=== PATIENT | female | born 1975 | race Caucasian/White ===

== ENCOUNTER 2017-12-09 17:40 | Emergency (ER) | payer BC ==
[~2017-12-09 17:40] MED LIST: ADV100/50 INH; ALB17R INH; ALB18R INH; ALPR-434 PO; ANTI-INFLAMMITORY; AZIT1PAC21 PO; BEN100 PO; BUS10 PO; CEP500 PO; CEPH500T7 PO; CET10 PO; CIT20 PO; CODE120S4 PO; CYC10 PO; CYCL10TA29 PO; DIC50 PO; DICY20TA70 PO; DIP25 PO; DIPH-741 PO; DOCU-416 PO; IBU600 PO; IBU800 PO; IBUP-56 PO; IRON18TA2 PO; KETO10TA PO; LEV500 PO; LOR1 PO; LOR10 PO; LOR5 PO; MEPE50TA29 PO; MON10 PO; MULT-1372 PO; NYST100016 PO; OLAN2.5T20 PO; OLAN2.5T22; OMEP-125 PO; ONDA4TAB PO; OXYC-373 PO; OXYC-865 PO; PAN40 PO; PANT40TA65 PO; PEG4000S21 PO; PER PO; PRE20 PO; PREG25 PO; PRO25 PO; PROM-110 PO; SUCR1TAB85 PO; SUMA50TA34 PO; TRAM-420 PO; TRAZ-133 PO; ZYPREXA
[2017-12-09] MEDS ORDERED: IBUPROFEN 600 MG TAB PO ONE (17:50)
[2017-12-09] MEDS ORDERED: OLAN2.5T22 PO (17:51)
[2017-12-09] MEDS ORDERED: SERT-173 PO (17:51)
[2017-12-09] MEDS ORDERED: BUDE10.2 INH (17:51)
[2017-12-09] MEDS ORDERED: OLAN10TA21 PO (17:51)
[2017-12-09] MEDS ORDERED: BUDE10.25 IH (17:51)
--- NOTE | 2017-12-09 17:55 | ER Report ---
History and Physical Time Seen By MD: 17:50 Hx. of Stated Complaint: LEFTANKLE PAIN HPI/ROS 42-year-old female was walking had an inversion injury of her left ankle and states that she has bad arthritis has had increased pain throughout the day is able to bear weight pain laterally in the sink Allergies: Coded Allergies: Penicillins (Verified Allergy, Severe, QUIT BREATHING, 12/09/17) TONGUE, THROAT, SWELLS SHUT Sulfa (Sulfonamide Antibiotics) (Verified Allergy, Severe, AIRWAY SWELLS CLOSED, 12/09/17) QUITS BREATHING clindamycin (Unverified Allergy, Severe, HIVES, THROAT SWELLS., 12/09/17) doxycycline (Unverified Allergy, Severe, HIVES, THROAT SWELLS, 12/09/17) QUITS BREATHING erythromycin base (Verified Allergy, Severe, 12/09/17) PILL FORM-VOMITING IV CAUSES ARM TO TURN BLACK hydrocodone (Verified Allergy, Severe, SEIZURES, 12/09/17) latex (Verified Allergy, Severe, STOPS BREATHING, 12/09/17) HIVES AND ITCHING levofloxacin (Verified Allergy, Severe, STOPS HER BREATHING, 12/09/17) phenytoin (Verified Allergy, Intermediate, 12/09/17) DOES NOT HELP SEIZURE AND CAUSES MEMORY LOSS adhesive (Verified Allergy, Unknown, HIVES, 12/09/17) Uncoded Allergies: IV Contrast (Adverse Reaction, Unknown, 10/12/16) PT STATES SHE "BLACKED OUT AND NEEDED A SHOT IN HER STOMACH AND HAND TO BRING HER OUR OF IT" Home Meds Active Scripts Ibuprofen (IBUPROFEN) 600 Mg Tablet, 1 TAB PO Q6H, #30 TAB Prov:GOLD LAMA 12/09/17 Dicyclomine Hcl (DICYCLOMINE HCL) 20 Mg Tablet, 1 TAB PO QID, #120 TAB 4 Refills Prov:SANDI DONIS MD 10/31/16 Reported Medications Budesonide/Formoterol Fumarate (SYMBICORT 160-4.5 MCG INHALER) 10.2 Gm Inh, 10.2 GM INH BID, INH 12/09/17 Budesonide/Formoterol Fumarate (SYMBICORT 80-4.5 MCG INHALER) 10.2 Gm Hfa.aer.ad , 10.2 GM IH BID 12/09/17 Sertraline Hcl (ZOLOFT) 100 Mg Tablet, 1 TAB PO QDAY, TAB 12/09/17 Olanzapine (ZYPREXA) 10 Mg Tablet, 10 MG PO QHS 12/09/17 Olanzapine (ZYPREXA) 2.5 Mg Tablet, 2.5 MG PO QAM 12/09/17 Pantoprazole Sodium (PANTOPRAZOLE SODIUM) 40 Mg Tablet.dr, 40 MG PO QDAY, TAB.SR 10/12/16 Albuterol Sulfate (VENTOLIN HFA) 18 Gm Inh, 1-2 PUFF INH 3-4XD Y for WHEEZING, INH 09/12/16 Diphenhydramine Hcl (BENADRYL ALLERGY) 25 Mg Tablet, 25 MG PO PRN, TAB 08/30/16 Discontinued Reported Medications [Anti-Inflammitory] No Conflict Check 05/10/17 Discontinued Scripts Cyclobenzaprine Hcl (CYCLOBENZAPRINE HCL) 10 Mg Tablet, 10 MG PO Q8H Y for MUSCLE SPASMS, #20 TAB 0 Refills Prov:ALONZO COATES MD 05/10/17 Oxycodone Hcl/Acetaminophen (PERCOCET 5-325 MG TABLET) 1 Each Tablet, 1-2 EACH PO Q4H Y for PAIN, #15 TAB 0 Refills Prov:ALONZO COATES MD 05/10/17 Past Medical/Surgical History ARTHRITIS Hx Smoking: Yes (1.5 ppd x 30 yrs ) Smoking Status: Current: Every Day Smoker Exposure to Second Hand Smoke?: Yes Hx Substance Use Disorder: No Hx Alcohol Use: No Family History of: HTN Constitutional Vital Sign - Last 24 Hours 12/09/17 12/09/17 12/09/17 12/09/17 17:40 17:47 17:53 18:00 Temp 97.8 Pulse 88 Resp 16 B/P (MAP) 109/73 115/81 (92) 109/73 (85) 112/64 (80) Pulse Ox 96 O2 Delivery Room Air 12/09/17 12/09/17 12/09/17 12/09/17 18:10 18:15 18:20 18:25 Pulse 89 95 90 97 Pulse Ox 95 95 95 94 12/09/17 12/09/17 12/09/17 18:30 18:35 18:40 Pulse 98 95 B/P (MAP) 120/56 (77) Pulse Ox 95 97 95 Physical Exam 42-year-old female alert and oriented anxious heart rate is regular no murmurs rubs and gallops lungs clear to auscultation moves all extremities has mild tenderness left lateral ankle CMS intact distally no bruising slight swelling Medical Decision Making EKG/Imaging Imaging X-rays are interpreted as negative ED Course/Re-evaluation ED Course X-rays negative air splint applied in the emergency room will have her follow- up with her primary care physician she has an appointment this Saturday Re-evaluation Tolerated air splint application CMS intact distally Decision to Disposition Date: Dec 09, 2017 Decision to Disposition Time: 17:54 Depart Departure Latest Vital Signs Vital Signs Date Time Temp Pulse Resp B/P (MAP) Pulse Ox O2 Delivery O2 Flow Rate FiO2 12/09/17 18:40 95 95 12/09/17 18:30 120/56 (77) 12/09/17 17:40 97.8 16 Room Air Impression: Primary Impression: SPRAIN OF UNSPECIFIED LIGAMENT OF LEFT ANKLE, INIT ENCNTR Condition: Improved Disposition: HOME OR SELF-CARE Referrals: ELFEGO MCGEE (PCP) 2 Days New Scripts Ibuprofen (IBUPROFEN) 600 Mg Tablet 1 TAB PO Q6H, #30 TAB Prov: GOLD LAMA 12/09/17 Patient Instructions: Ankle Sprain (ED) GOLD LAMA Dec 09, 2017 17:55
[2017-12-09] MEDS ORDERED: IBUP600T22 PO (18:26)
[2017-12-09 18:30] VITALS: BP 120/56
--- NOTE | 2017-12-09 19:05 | RADIOLOGY IMAGING REPORT ---
FACILITY: [facility] [place]IENT NAME: Phuong Estes : 1975 MR: [id number] V: [id number] EXAM DATE: ORDERING PHYSICIAN: GOLD LAMA TECHNOLOGIST: Location: Patient: Phuong Estes : 1975 Visit/Account:[id number] Date of Sevice: 12/09/2017 ANKLE 3 VIEW MIN LEFT HISTORY: INVERSION INJURY THREE-VIEW EXAMINATION LEFT ANKLE. FINDINGS: No acute fracture. The distal tibia and fibular well-maintained. Ankle mortise intact. No soft tissue swelling. Hind and midfoot structures unremarkable. IMPRESSION: 1. Negative left ankle Report Dictated By: Melvin Arenas MD at 12/09/2017 6:59 PM Report E-Signed By: Melvin Arenas MD at 12/09/2017 7:01 PM WSN:[id number]
== END 2017-12-09 18:40 | disposition home or self-care (01) ==
LOC: ER 17:59
DX: S93.402A Sprain of unspecified ligament of left ankle, initial encounter (principal); F17.210 Nicotine dependence, cigarettes, uncomplicated
CPT/HCPCS: 73610; 99283; L1930

== ENCOUNTER 2017-12-23 19:38 | Emergency (ER) | payer BC ==
[~2017-12-23 19:38] MED LIST changes: +BUDE10.2 INH; +BUDE10.25 IH; +IBUP600T22 PO; +OLAN10TA21 PO; +OLAN2.5T22 PO; +SERT-173 PO
[2017-12-23] MEDS ORDERED: IBUP800T37 PO (20:42)
--- NOTE | 2017-12-23 20:43 | ER Report ---
History and Physical Time Seen By MD: 20:38 Hx. of Stated Complaint: patient was holding granddaughter when her right knee when out from under her HPI/ROS 42-year-old female was changing a baby's diaper and stepped over to through the diaper in the trashcan and pelvis sudden pop and burning sensation in her right knee has had meniscus surgery on her left has never had problems with the right before was able to bear weight after the accident and complains of pain in the right lateral knee said it radiates down to her right lateral malleolus Allergies: Coded Allergies: Penicillins (Verified Allergy, Severe, QUIT BREATHING, 12/09/17) TONGUE, THROAT, SWELLS SHUT Sulfa (Sulfonamide Antibiotics) (Verified Allergy, Severe, AIRWAY SWELLS CLOSED, 12/09/17) QUITS BREATHING clindamycin (Unverified Allergy, Severe, HIVES, THROAT SWELLS., 12/09/17) doxycycline (Unverified Allergy, Severe, HIVES, THROAT SWELLS, 12/09/17) QUITS BREATHING erythromycin base (Verified Allergy, Severe, 12/09/17) PILL FORM-VOMITING IV CAUSES ARM TO TURN BLACK hydrocodone (Verified Allergy, Severe, SEIZURES, 12/09/17) latex (Verified Allergy, Severe, STOPS BREATHING, 12/09/17) HIVES AND ITCHING levofloxacin (Verified Allergy, Severe, STOPS HER BREATHING, 12/09/17) phenytoin (Verified Allergy, Intermediate, 12/09/17) DOES NOT HELP SEIZURE AND CAUSES MEMORY LOSS adhesive (Verified Allergy, Unknown, HIVES, 12/09/17) Uncoded Allergies: IV Contrast (Adverse Reaction, Unknown, 10/12/16) PT STATES SHE "BLACKED OUT AND NEEDED A SHOT IN HER STOMACH AND HAND TO BRING HER OUR OF IT" Home Meds Active Scripts Ibuprofen (IBUPROFEN) 800 Mg Tablet, 1 TAB PO Q8H, #30 TAB Prov:GOLD LAMA CONE OPERATOR-C 12/23/17 Ibuprofen (IBUPROFEN) 600 Mg Tablet, 1 TAB PO Q6H, #30 TAB Prov:GOLD LAMA CONE OPERATOR-C 12/09/17 Dicyclomine Hcl (DICYCLOMINE HCL) 20 Mg Tablet, 1 TAB PO QID, #120 TAB 4 Refills Prov:SANDI DONIS MD 10/31/16 Reported Medications Budesonide/Formoterol Fumarate (SYMBICORT 160-4.5 MCG INHALER) 10.2 Gm Inh, 10.2 GM INH BID, INH 12/09/17 Budesonide/Formoterol Fumarate (SYMBICORT 80-4.5 MCG INHALER) 10.2 Gm Hfa.aer.ad , 10.2 GM IH BID 12/09/17 Sertraline Hcl (ZOLOFT) 100 Mg Tablet, 1 TAB PO QDAY, TAB 12/09/17 Olanzapine (ZYPREXA) 10 Mg Tablet, 10 MG PO QHS 12/09/17 Olanzapine (ZYPREXA) 2.5 Mg Tablet, 2.5 MG PO QAM 12/09/17 Pantoprazole Sodium (PANTOPRAZOLE SODIUM) 40 Mg Tablet.dr, 40 MG PO QDAY, TAB.SR 10/12/16 Albuterol Sulfate (VENTOLIN HFA) 18 Gm Inh, 1-2 PUFF INH 3-4XD Y for WHEEZING, INH 09/12/16 Diphenhydramine Hcl (BENADRYL ALLERGY) 25 Mg Tablet, 25 MG PO PRN, TAB 08/30/16 Past Medical/Surgical History Asthma, depression, meniscus surgery left knee Hx Smoking: Yes (1.5 ppd x 30 yrs ) Smoking Status: Current: Every Day Smoker Exposure to Second Hand Smoke?: Yes Hx Substance Use Disorder: No Hx Alcohol Use: No Constitutional Vital Sign - Last 24 Hours 12/23/17 19:52 Temp 98.3 Pulse 108 Resp 18 B/P (MAP) 106/60 Pulse Ox 94 O2 Delivery Room Air Physical Exam alert and oriented nad, heart rate is regular no murmurs rubs and gallops lungs clear to auscultation abdomen is soft moves all extremities pain right lateral knee positive drawer CMS intact distally 4 pulse Medical Decision Making ED Course/Re-evaluation ED Course X-ray is negative him did talk to the patient about wearing immobilizer for a week stay on crutches him resting she will follow-up with her PCP in 1 week for further eval Re-evaluation Patient saw having mild pain lateral knee tolerates immobilizer will use crutches help with PCP in one week diagnosed with knee strain Decision to Disposition Date: Dec 23, 2017 Decision to Disposition Time: 20:40 Depart Departure Latest Vital Signs Vital Signs Date Time Temp Pulse Resp B/P (MAP) Pulse Ox O2 Delivery O2 Flow Rate FiO2 12/23/17 19:52 98.3 108 18 106/60 94 Room Air Impression: Primary Impression: Strain of right knee Condition: Improved Disposition: HOME OR SELF-CARE Referrals: ANDERS BOB APRN (PCP) 1 Week New Scripts Ibuprofen (IBUPROFEN) 800 Mg Tablet 1 TAB PO Q8H, #30 TAB Prov: GOLD LAMA 12/23/17 Patient Instructions: Knee Immobilizer (DC), Knee Pain (ED) Additional Instructions: Wear your knee immobilizer when up and around usual crutches Motrin 800 mg 3 times a day see your primary care physician a week for further evaluation GOLD LAMA Dec 23, 2017 20:43
[2017-12-23] MEDS ORDERED: IBUPROFEN 800 MG TAB PO ONE (20:55)
[2017-12-23 21:00] VITALS: BP 109/64
--- NOTE | 2017-12-23 21:07 | RADIOLOGY IMAGING REPORT ---
FACILITY: [facility] - [place] PATIENT NAME: Phuong Estes : 1975 MR: [id number] V: [id number] EXAM DATE: ORDERING PHYSICIAN: GOLD LAMA TECHNOLOGIST: Location: [facility] - [place] Patient: Phuong Estes : 1975 Visit/Account:[id number] Date of Sevice: 12/23/2017 EXAMINATION: Right knee 3 views HISTORY: Pain. COMPARISON: None. FINDINGS: Bones of the right knee demonstrate normal alignment. No evidence of fracture or dislocation. Joint s paces are preserved. Soft tissues are radiographically unremarkable. No significant knee joint effusi on is evident. IMPRESSION: Negative right knee. Report Dictated By: Manuel Menchaca MD at 12/23/2017 9:03 PM Report E-Signed By: Manuel Menchaca MD at 12/23/2017 9:03 PM WSN:[id number]
== END 2017-12-23 21:13 | disposition home or self-care (01) ==
LOC: ER 20:05
DX: S86.911A Strain of unspecified muscle(s) and tendon(s) at lower leg level, right leg, initial encounter (principal)
CPT/HCPCS: 99283

== ENCOUNTER 2018-02-10 17:09 | Emergency (ER) | payer BC ==
[~2018-02-10 17:09] MED LIST changes: +IBUP800T37 PO
[2018-02-10 17:30] VITALS: BP 120/71
--- NOTE | 2018-02-10 17:45 | ER Report ---
History and Physical Time Seen By MD: 17:44 Hx. of Stated Complaint: pt is having shooting pain from her left hip down to her toes. she has a referal into [facility] and will call them tomorrow. HPI/ROS CHIEF COMPLAINT: Back pain HISTORY OF PRESENT ILLNESS: 42-year-old female patient presents to emergency room with complaint of back pain. Patient states that she has been having back pain for the past month. She states that she injured her left ankle and her right knee. She states that caused her to walk abnormally. She states that she' s had pain to the left side of the low back. It does radiate down the left leg. She states she has some numbness to the lateral aspect of the left upper leg. She denies any injury to the low back. She states that she has had no problems having bowel movement. Patient states she does feels if she has had some urinary retention recently. She states that she feels like she has been bathroom all the time. She states she did have an episode where she "dribbled a little" trying to go the bathroom. Patient states that she has no saddle paresthesia. She did try some exercises for sciatica pain but had no improvement in her symptoms. Patient states she did take ibuprofen with no improvement. REVIEW OF SYSTEMS: Respiratory: No cough, no dyspnea. Cardiovascular: No chest pain, no palpitations. Gastrointestinal: No vomiting, no abdominal pain. Musculoskeletal: As noted above Allergies: Coded Allergies: Penicillins (Verified Allergy, Severe, QUIT BREATHING, 12/09/17) TONGUE, THROAT, SWELLS SHUT Sulfa (Sulfonamide Antibiotics) (Verified Allergy, Severe, AIRWAY SWELLS CLOSED, 12/09/17) QUITS BREATHING clindamycin (Unverified Allergy, Severe, HIVES, THROAT SWELLS., 12/09/17) doxycycline (Unverified Allergy, Severe, HIVES, THROAT SWELLS, 12/09/17) QUITS BREATHING erythromycin base (Verified Allergy, Severe, 12/09/17) PILL FORM-VOMITING IV CAUSES ARM TO TURN BLACK hydrocodone (Verified Allergy, Severe, SEIZURES, 12/09/17) latex (Verified Allergy, Severe, STOPS BREATHING, 12/09/17) HIVES AND ITCHING levofloxacin (Verified Allergy, Severe, STOPS HER BREATHING, 12/09/17) phenytoin (Verified Allergy, Intermediate, 12/09/17) DOES NOT HELP SEIZURE AND CAUSES MEMORY LOSS adhesive (Verified Allergy, Unknown, HIVES, 12/09/17) Uncoded Allergies: IV Contrast (Adverse Reaction, Unknown, 10/12/16) PT STATES SHE "BLACKED OUT AND NEEDED A SHOT IN HER STOMACH AND HAND TO BRING HER OUR OF IT" Home Meds Active Scripts Tramadol Hcl (TRAMADOL HCL) 50 Mg Tablet, 50 MG PO Q4-6H Y for PAIN, #12 TAB Prov:[facility] 02/10/18 Prednisone (PREDNISONE) 20 Mg Tablet, 20 MG PO BID, #10 TAB Prov:SAL LOGAN [facility] 02/10/18 Cyclobenzaprine Hcl (CYCLOBENZAPRINE HCL) 10 Mg Tablet, 10 MG PO TID Y for MUSCLE SPASMS, #15 TAB Prov:SAL LOGAN [facility] 02/10/18 Ibuprofen (IBUPROFEN) 600 Mg Tablet, 1 TAB PO Q6H, #30 TAB Prov:GOLD LAMA 12/09/17 Dicyclomine Hcl (DICYCLOMINE HCL) 20 Mg Tablet, 1 TAB PO QID, #120 TAB 4 Refills Prov:SANDI DONIS MD 10/31/16 Reported Medications Budesonide/Formoterol Fumarate (SYMBICORT 80-4.5 MCG INHALER) 10.2 Gm Hfa.aer.ad , 10.2 GM IH BID 12/09/17 Olanzapine (ZYPREXA) 10 Mg Tablet, 10 MG PO QHS 12/09/17 Pantoprazole Sodium (PANTOPRAZOLE SODIUM) 40 Mg Tablet.dr, 40 MG PO QDAY, TAB.SR 10/12/16 Albuterol Sulfate (VENTOLIN HFA) 18 Gm Inh, 1-2 PUFF INH 3-4XD Y for WHEEZING, INH 09/12/16 Diphenhydramine Hcl (BENADRYL ALLERGY) 25 Mg Tablet, 25 MG PO PRN, TAB 08/30/16 Discontinued Reported Medications Budesonide/Formoterol Fumarate (SYMBICORT 160-4.5 MCG INHALER) 10.2 Gm Inh, 10.2 GM INH BID, INH 12/09/17 Sertraline Hcl (ZOLOFT) 100 Mg Tablet, 1 TAB PO QDAY, TAB 12/09/17 Olanzapine (ZYPREXA) 2.5 Mg Tablet, 2.5 MG PO QAM 12/09/17 Discontinued Scripts Ibuprofen (IBUPROFEN) 800 Mg Tablet, 1 TAB PO Q8H, #30 TAB Prov:GOLD LAMA FELICITA 12/23/17 Past Medical/Surgical History Patient has a past medical history of seizures, migraines, pericardial cyst, angina, bronchitis, asthma, pneumonia, reflux, cholecystitis, ovarian cyst, torn tendons in right shoulder, arthritis, left ankle fracture, rib fractures, finger fracture, skull fracture, back pain, anxiety, depression, PTSD, cervical cancer. Patient has a surgical history of adhesions removed, appendectomy, cholecystectomy, hysterectomy, tubal ligation, left knee surgery, torn meniscus , tendon and bone spur surgery, right shoulder surgery. Reviewed Nurses Notes: Yes Hx Smoking: Yes (1.5 ppd x 30 yrs ) Smoking Status: Current: Every Day Smoker Exposure to Second Hand Smoke?: Yes Hx Substance Use Disorder: No Hx Alcohol Use: No Constitutional Vital Sign - Last 24 Hours 02/10/18 02/10/18 02/10/18 17:16 17:29 17:30 Temp 99.7 97.9 Pulse 93 Resp 14 18 B/P (MAP) 113/67 (82) 120/81 120/71 (87) Pulse Ox 95 O2 Delivery Room Air Physical Exam General Appearance: The patient is alert, has no immediate need for airway protection and no current signs of toxicity. Respiratory: Chest is non tender, lungs are clear to auscultation. Cardiac: regular rate and rhythm Gastrointestinal: Abdomen is soft and non tender, no masses, bowel sounds normal. Musculoskeletal: Neck: Neck is supple and non tender. Back: Patient did have tenderness in the low back, L3-L4 region as well as in the left SI joint. Extremities have full range of motion and are non tender. Skin: No rashes or lesions. DIFFERENTIAL DIAGNOSIS: After history and physical exam differential diagnosis was considered for back pain including but not limited to muscular pain, herniated disc, spine fracture, intra-abdominal causes and urinary tract infection. Medical Decision Making Data Points Laboratory Hematology Test 02/10/18 18:15 Urine Color Yellow Urine Clarity Clear Urine pH 5.0 pH (4.8-9.5) Urine Specific [place] 1.018 Urine Protein Negative mg/dL (NEGATIVE) Urine Glucose (UA) Negative mg/dL (NEGATIVE) Urine Ketones Negative mg/dL (NEGATIVE) Urine Blood Negative (NEGATIVE) Urine Nitrite Negative (NEGATIVE) Urine Bilirubin Negative (NEGATIVE) Urine Urobilinogen Negative mg/dL (0.2-1.9) Urine Leukocyte Esterase Negative (NEGATIVE) Urine RBC 1 /HPF (0-2/HPF) Urine WBC 1 /HPF (0-5/HPF) Urine Squamous Epithelial Cells Moderate /LPF (</=FEW) Urine Bacteria Negative /HPF (NONE-FEW) Urine Mucus None /HPF (NONE-FEW) Chemistry Test 02/10/18 18:15 Urine Color Yellow Urine Clarity Clear Urine pH 5.0 pH (4.8-9.5) Urine Specific [place] 1.018 Urine Protein Negative mg/dL (NEGATIVE) Urine Glucose (UA) Negative mg/dL (NEGATIVE) Urine Ketones Negative mg/dL (NEGATIVE) Urine Blood Negative (NEGATIVE) Urine Nitrite Negative (NEGATIVE) Urine Bilirubin Negative (NEGATIVE) Urine Urobilinogen Negative mg/dL (0.2-1.9) Urine Leukocyte Esterase Negative (NEGATIVE) Urine RBC 1 /HPF (0-2/HPF) Urine WBC 1 /HPF (0-5/HPF) Urine Squamous Epithelial Cells Moderate /LPF (</=FEW) Urine Bacteria Negative /HPF (NONE-FEW) Urine Mucus None /HPF (NONE-FEW) Urinalysis Test 02/10/18 18:15 Urine Color Yellow Urine Clarity Clear Urine pH 5.0 pH (4.8-9.5) Urine Specific [place] 1.018 Urine Protein Negative mg/dL (NEGATIVE) Urine Glucose (UA) Negative mg/dL (NEGATIVE) Urine Ketones Negative mg/dL (NEGATIVE) Urine Blood Negative (NEGATIVE) Urine Nitrite Negative (NEGATIVE) Urine Bilirubin Negative (NEGATIVE) Urine Urobilinogen Negative mg/dL (0.2-1.9) Urine Leukocyte Esterase Negative (NEGATIVE) Urine RBC 1 /HPF (0-2/HPF) Urine WBC 1 /HPF (0-5/HPF) Urine Squamous Epithelial Cells Moderate /LPF (</=FEW) Urine Bacteria Negative /HPF (NONE-FEW) Urine Mucus None /HPF (NONE-FEW) EKG/Imaging Imaging INDICATION: back pain EXAM DATE: 02/10/2018 5:51 PM COMPARISON: 05/10/2017. FINDINGS: 4 images of the lumbar spine. Mineralization is normal. No acute alignment abnormality or fracture. Disc spaces are well-maintained. Soft tissues are nonacute. No significant cholecystectomy clips IMPRESSION: Grossly normal lumbar spine. Report Dictated By: Eros Boyle MD at 02/10/2018 8:12 PM Report E-Signed By: Eros Boyle MD at 02/10/2018 8:13 PM INDICATION: back pain EXAM DATE: 02/10/2018 5:51 PM COMPARISON: None. FINDINGS: 3 views of the sacroiliac joints. Mineralization is normal. No acute alignment abnormality or fracture. Mild symmetric degenerative changes of the SI joints. Soft tissues are unremarkable. IMPRESSION: Mild degenerative changes of the sacroiliac joints with no acute osseous abnormality. Report Dictated By: Eros Boyle MD at 02/10/2018 8:04 PM Report E-Signed By: Eros Boyle MD at 02/10/2018 8:06 PM ED Course/Re-evaluation ED Course Patient was admitted to exam room, history and physical were obtained. Differential diagnoses were considered. On examination lungs are clear, heart is regular, abdomen soft nontender. Patient does have tenderness in the L3-L4 region and in the left SI joint. X-rays done of the lumbar spine as well as the SI joints. Findings did show some arthritis in the SI joints, no abnormal findings in the lumbar spine. Patient was treated here in the emergency room with 60 mg of Norflex and 60 mg of Toradol. Patient did have some improvement in her comfort. We will go ahead and discharge patient home at this time. We will go ahead and put her on steroids to help with any inflammation, which I believe is likely the underlying cause of the tingling to the lateral left leg. We will also treat her with tramadol for pain as well as a muscle relaxer. I discussed this with the patient who verbalized understanding and agreement with plan. Decision to Disposition Date: Feb 10, 2018 Decision to Disposition Time: 18:43 Depart Departure Latest Vital Signs Vital Signs Date Time Temp Pulse Resp B/P (MAP) Pulse Ox O2 Delivery O2 Flow Rate FiO2 02/10/18 17:30 120/71 (87) 02/10/18 17:29 97.9 18 02/10/18 17:16 93 95 Room Air Impression: Primary Impression: Low back pain Condition: Improved Disposition: HOME OR SELF-CARE Referrals: ANDERS BOB APRN (PCP) New Scripts Tramadol Hcl (TRAMADOL HCL) 50 Mg Tablet 50 MG PO Q4-6H Y for PAIN, #12 TAB Prov: SAL LOGAN 02/10/18 Prednisone (PREDNISONE) 20 Mg Tablet 20 MG PO BID, #10 TAB Prov: SAL LOGAN 02/10/18 Cyclobenzaprine Hcl (CYCLOBENZAPRINE HCL) 10 Mg Tablet 10 MG PO TID Y for MUSCLE SPASMS, #15 TAB Prov: SAL LOGAN 02/10/18 Patient Instructions: Acute Low Back Pain (ED) Additional Instructions: Limit activity by pain. Get plenty of rest. Alternate heat and ice to the low back. Follow up with [facility], call tomorrow to make an appointment. Limit heavy lifting. Take the medication as prescribed. Return to the ER if condition worsens. Problem Qualifiers Primary Impression: Low back pain Chronicity: acute Back pain laterality: left Sciatica presence: with sciatica Sciatica laterality: sciatica of left side Qualified Codes: M54.42 - Lumbago with sciatica, left side SAL LOGAN SHIP UNLOADER Feb 10, 2018 17:44
[2018-02-10] MEDS ORDERED: ORPHENADRINE 60MG/2ML INJ IM ONE (17:55)
[2018-02-10] MEDS ORDERED: KETOROLAC 60 MG/2 ML VIAL IM ONE (17:55)
[2018-02-10] MEDS ORDERED: CYCL10TA29 PO (18:41)
[2018-02-10] MEDS ORDERED: PRED20TA6 PO (18:41)
[2018-02-10] MEDS ORDERED: TRAM-420 PO (18:41)
--- NOTE | 2018-02-10 20:09 | RADIOLOGY IMAGING REPORT ---
FACILITY: [facility] PATIENT NAME: Phuong Estes : 1975 MR: [id number] V: [id number] EXAM DATE: ORDERING PHYSICIAN: SAL LOGAN TECHNOLOGIST: Location: [facility] - [place] Patient: Phuong Estes : 1975 Visit/Account:[id number] Date of Sevice: 02/10/2018 INDICATION: back pain EXAM DATE: 02/10/2018 5:51 PM COMPARISON: None. FINDINGS: 3 views of the sacroiliac joints. Mineralization is normal. No acute alignment abnormality or fractur e. Mild symmetric degenerative changes of the SI joints. Soft tissues are unremarkable. IMPRESSION: Mild degenerative changes of the sacroiliac joints with no acute osseous abnormality. Report Dictated By: Eros Boyle MD at 02/10/2018 8:04 PM Report E-Signed By: Eros Boyle MD at 02/10/2018 8:06 PM WSN:[id number]
--- NOTE | 2018-02-10 20:17 | RADIOLOGY IMAGING REPORT ---
FACILITY: [facility] - [place] PATIENT NAME: Phuong Estes : 1975 MR: [id number] V: [id number] EXAM DATE: ORDERING PHYSICIAN: SAL LOGAN TECHNOLOGIST: Location: [facility] Patient: Phuong Estes : 1975 Visit/Account:[id number] Date of Sevice: 02/10/2018 INDICATION: back pain EXAM DATE: 02/10/2018 5:51 PM COMPARISON: 05/10/2017. FINDINGS: 4 images of the lumbar spine. Mineralization is normal. No acute alignment abnormality or fracture. Disc spaces are well-maintained. Soft tissues are nonacute. No significant cholecystectomy clips IMPRESSION: Grossly normal lumbar spine. Report Dictated By: Eros Boyle MD at 02/10/2018 8:12 PM Report E-Signed By: Eros Boyle MD at 02/10/2018 8:13 PM WSN:[id number]
== END 2018-02-10 18:50 | disposition home or self-care (01) ==
LOC: ER 17:29
DX: M54.42 Lumbago with sciatica, left side (principal)
CPT/HCPCS: 81001; 96372; 99283; J1885; J2360; 72120; 72202

== ENCOUNTER 2018-07-13 16:19 | Emergency (ER) | payer BC ==
[~2018-07-13 16:19] MED LIST changes: +PRED20TA6 PO
--- NOTE | 2018-07-13 16:32 | ER Report ---
History and Physical Time Seen By MD: 16:32 HPI/ROS CHIEF COMPLAINT: Lightheadedness, dizziness, generalized fatigue. HISTORY OF PRESENT ILLNESS: Patient is a 43-year-old female here with complaints of the above. Patient reports that her symptoms started yesterday. She is currently under treatment for sinusitis with penicillin, previously completed a course of azithromycin. Patient has decreased appetite, nausea, general malaise. Patient is nontoxic in appearance, hemodynamically stable, afebrile. REVIEW OF SYSTEMS: Constitutional: No fever, no chills. Eyes: No discharge. + intermittent shaky vision ENT: No sore throat. + sinus pressure, pain Cardiovascular: No chest pain, no palpitations. Respiratory: No cough, no shortness of breath. Gastrointestinal: No abdominal pain, no vomiting. Genitourinary: No hematuria. Musculoskeletal: No back pain. Skin: No rashes. Neurological: + headaches, lightheadedness, dizziness Allergies: Coded Allergies: Penicillins (Verified Allergy, Severe, QUIT BREATHING, 12/09/17) TONGUE, THROAT, SWELLS SHUT Sulfa (Sulfonamide Antibiotics) (Verified Allergy, Severe, AIRWAY SWELLS CLOSED, 12/09/17) QUITS BREATHING clindamycin (Unverified Allergy, Severe, HIVES, THROAT SWELLS., 12/09/17) doxycycline (Unverified Allergy, Severe, HIVES, THROAT SWELLS, 12/09/17) QUITS BREATHING erythromycin base (Verified Allergy, Severe, 12/09/17) PILL FORM-VOMITING IV CAUSES ARM TO TURN BLACK hydrocodone (Verified Allergy, Severe, SEIZURES, 12/09/17) latex (Verified Allergy, Severe, STOPS BREATHING, 12/09/17) HIVES AND ITCHING levofloxacin (Verified Allergy, Severe, STOPS HER BREATHING, 12/09/17) phenytoin (Verified Allergy, Intermediate, 12/09/17) DOES NOT HELP SEIZURE AND CAUSES MEMORY LOSS adhesive (Verified Allergy, Unknown, HIVES, 12/09/17) Uncoded Allergies: IV Contrast (Adverse Reaction, Unknown, 10/12/16) PT STATES SHE "BLACKED OUT AND NEEDED A SHOT IN HER STOMACH AND HAND TO BRING HER OUR OF IT" Home Meds Active Scripts Meclizine Hcl (MECLIZINE HCL) 12.5 Mg Tablet, 12.5 MG PO BID PRN for DIZZINESS, #20 TAB Prov:JULISSA GUERRA DO 07/13/18 Ondansetron 4 Mg Odt (ONDANSETRON 4 MG ODT) 4 Mg Tab.rapdis, 4 MG PO ONCE, #20 T AB Prov:JULISSA GUERRA DO 07/13/18 Ibuprofen (IBUPROFEN) 600 Mg Tablet, 1 TAB PO Q6H, #30 TAB Prov:GOLD LAMA 12/09/17 Dicyclomine Hcl (DICYCLOMINE HCL) 20 Mg Tablet, 1 TAB PO QID, #120 TAB 4 Refills Prov:SANDI DONIS MD 10/31/16 Reported Medications Venlafaxine Hcl (EFFEXOR XR) 37.5 Mg Cap.er.24h, 37.5 MG PO QDAY 07/13/18 Cephalexin (KEFLEX) 500 Mg Capsule, 500 MG PO Q6H, #28 CAP 07/13/18 Gabapentin (GABAPENTIN) 300 Mg Capsule, 300 MG PO TID, CAPSULE 07/13/18 Budesonide/Formoterol Fumarate (SYMBICORT 80-4.5 MCG INHALER) 10.2 Gm Hfa.aer.ad, 10.2 GM IH BID 12/09/17 Pantoprazole Sodium (PANTOPRAZOLE SODIUM) 40 Mg Tablet.dr, 40 MG PO QDAY, TAB.SR 10/12/16 Albuterol Sulfate (VENTOLIN HFA) 18 Gm Inh, 1-2 PUFF INH 3-4XD PRN for WHEEZING, INH 09/12/16 Diphenhydramine Hcl (BENADRYL ALLERGY) 25 Mg Tablet, 25 MG PO PRN, TAB 08/30/16 Discontinued Reported Medications Olanzapine (ZYPREXA) 10 Mg Tablet, 10 MG PO QHS 12/09/17 Discontinued Scripts Tramadol Hcl (TRAMADOL HCL) 50 Mg Tablet, 50 MG PO Q4-6H PRN for PAIN, #12 TAB Prov:SAL LOGAN 02/10/18 Prednisone (PREDNISONE) 20 Mg Tablet, 20 MG PO BID, #10 TAB Prov:SAL LOGAN 02/10/18 Cyclobenzaprine Hcl (CYCLOBENZAPRINE HCL) 10 Mg Tablet, 10 MG PO TID PRN for MUSCLE SPASMS, #15 TAB Prov:SAL LOGAN 02/10/18 Hx Smoking: Yes (1.5 ppd x 30 yrs ) Smoking Status: Current: Every Day Smoker Exposure to Second Hand Smoke?: Yes Hx Substance Use Disorder: No Hx Alcohol Use: No Constitutional Vital Sign - Last 24 Hours 07/13/18 07/13/18 07/13/18 07/13/18 16:26 16:26 16:28 16:34 Temp 98.5 Pulse 94 89 Resp 14 B/P (MAP) 141/79 (99) 141/79 (99) 141/79 Pulse Ox 92 93 O2 Delivery Room Air 07/13/18 07/13/18 07/13/18 07/13/18 16:34 16:49 16:49 17:00 Pulse 89 84 84 B/P (MAP) 112/67 (82) Pulse Ox 93 92 92 07/13/18 07/13/18 07/13/18 07/13/18 17:00 17:04 17:04 17:19 Pulse 93 93 ??? B/P (MAP) 112/67 (82) Pulse Ox 93 93 07/13/18 07/13/18 07/13/18 07/13/18 17:19 17:34 17:34 17:49 Pulse ? 85 Pulse Ox 95 07/13/18 07/13/18 07/13/18 07/13/18 17:49 18:00 18:00 18:04 Pulse 85 89 B/P (MAP) 102/56 (71) 102/56 (71) Pulse Ox 95 94 07/13/18 18:04 Pulse 89 Pulse Ox 94 Intake and Output 07/13/18 07/13/18 07/14/18 15:00 23:00 07:00 Intake Total 1000 ml Balance 1000 ml Physical Exam General Appearance: The patient is alert, has no immediate need for airway protection and no signs of toxicity. Mild distress Eyes: Pupils equal and round no pallor or injection. + horizontal nystagmus ENT, Mouth: Mucous membranes are moist. Respiratory: There are no retractions, lungs are clear to auscultation. Cardiovascular: Regular rate and rhythm. Gastrointestinal: Abdomen is soft and non tender, no masses, bowel sounds normal. Neurological: No focal neuro deficits Skin: Warm and dry, no rashes. Musculoskeletal: Neck is supple non tender. Extremities are nontender, nonswollen and have full range of motion. DIFFERENTIAL DIAGNOSIS: After history and physical exam differential diagnosis was considered for peripheral versus central vertigo, sinusitis, labyrinthitis, viral syndrome, dehydration, electrolyte abnormality Medical Decision Making Data Points Result Diagram: 07/13/18 1632 07/13/18 1632 Laboratory Hematology Test 07/13/18 16:32 07/13/18 17:10 Red Blood Count 5.63 M/uL (4.17-5.56) Mean Corpuscular Volume 93.1 fL (80.0-96.0) Mean Corpuscular Hemoglobin 31.9 pg (26.0-33.0) Mean Corpuscular Hemoglobin Concent 34.2 g/dL (32.0-36.0) Red Cell Distribution Width 12.7 % (11.5-14.5) Mean Platelet Volume 8.2 fL (7.2-11.1) Neutrophils (%) (Auto) 68.8 % (39.4-72.5) Lymphocytes (%) (Auto) 22.7 % (17.6-49.6) Monocytes (%) (Auto) 6.0 % (4.1-12.4) Eosinophils (%) (Auto) 1.6 % (0.4-6.7) Basophils (%) (Auto) 0.9 % (0.3-1.4) Nucleated RBC Relative Count (auto) 0.0 /100WBC Neutrophils # (Auto) 4.9 K/uL (2.0-7.4) Lymphocytes # (Auto) 1.6 K/uL (1.3-3.6) Monocytes # (Auto) 0.4 K/uL (0.3-1.0) Eosinophils # (Auto) 0.1 K/uL (0.0-0.5) Basophils # (Auto) 0.1 K/uL (0.0-0.1) Nucleated RBC Absolute Count (auto) 0.00 K/uL Erythrocyte Sedimentation Rate 3 mm/HOUR (0-20) Sodium Level 139 mmol/L (137-145) Potassium Level 3.8 mmol/L (3.5-5.0) Chloride Level 104 mmol/L (98-107) Carbon Dioxide Level 26 mmol/L (22-31) Blood Urea Nitrogen 9 mg/dl (7-18) Creatinine 0.80 mg/dl (0.52-1.04) Glomerular Filtration Rate Calc > 60.0 Random Glucose 123 mg/dl (75-110) Calcium Level 9.7 mg/dl (8.4-10.2) Total Bilirubin 0.3 mg/dl (0.2-1.3) Aspartate Amino Transf (AST/SGOT) 26 U/L (0-35) Alanine Aminotransferase (ALT/SGPT) 24 U/L (0-56) Alkaline Phosphatase 69 U/L (0-126) Total Protein 8.1 g/dl (6.3-8.2) Albumin 4.6 g/dl (3.5-5.0) Urine Color Yellow Urine Clarity Slightly-cloudy Urine pH 6.0 pH (4.8-9.5) Urine Specific [place] 1.010 Urine Protein Negative mg/dL (NEGATIVE) Urine Glucose (UA) Negative mg/dL (NEGATIVE) Urine Ketones Negative mg/dL (NEGATIVE) Urine Blood Negative (NEGATIVE) Urine Nitrite Negative (NEGATIVE) Urine Bilirubin Negative (NEGATIVE) Urine Urobilinogen Negative mg/dL (0.2-1.9) Urine Leukocyte Esterase Negative (NEGATIVE) Urine RBC None /HPF (0-2/HPF) Urine WBC 1 /HPF (0-5/HPF) Urine Squamous Epithelial Cells Many /LPF (</=FEW) Urine Bacteria Few /HPF (NONE-FEW) Urine Mucus None /HPF (NONE-FEW) Chemistry Test 07/13/18 16:32 07/13/18 17:10 White Blood Count 7.2 k/uL (4.5-11.0) Red Blood Count 5.63 M/uL (4.17-5.56) Hemoglobin 17.9 g/dL (12.0-16.0) Hematocrit 52.4 % (34.0-47.0) Mean Corpuscular Volume 93.1 fL (80.0-96.0) Mean Corpuscular Hemoglobin 31.9 pg (26.0-33.0) Mean Corpuscular Hemoglobin Concent 34.2 g/dL (32.0-36.0) Red Cell Distribution Width 12.7 % (11.5-14.5) Platelet Count 217 K/uL (150-450) Mean Platelet Volume 8.2 fL (7.2-11.1) Neutrophils (%) (Auto) 68.8 % (39.4-72.5) Lymphocytes (%) (Auto) 22.7 % (17.6-49.6) Monocytes (%) (Auto) 6.0 % (4.1-12.4) Eosinophils (%) (Auto) 1.6 % (0.4-6.7) Basophils (%) (Auto) 0.9 % (0.3-1.4) Nucleated RBC Relative Count (auto) 0.0 /100WBC Neutrophils # (Auto) 4.9 K/uL (2.0-7.4) Lymphocytes # (Auto) 1.6 K/uL (1.3-3.6) Monocytes # (Auto) 0.4 K/uL (0.3-1.0) Eosinophils # (Auto) 0.1 K/uL (0.0-0.5) Basophils # (Auto) 0.1 K/uL (0.0-0.1) Nucleated RBC Absolute Count (auto) 0.00 K/uL Erythrocyte Sedimentation Rate 3 mm/HOUR (0-20) Glomerular Filtration Rate Calc > 60.0 Calcium Level 9.7 mg/dl (8.4-10.2) Total Bilirubin 0.3 mg/dl (0.2-1.3) Aspartate Amino Transf (AST/SGOT) 26 U/L (0-35) Alanine Aminotransferase (ALT/SGPT) 24 U/L (0-56) Alkaline Phosphatase 69 U/L (0-126) Total Protein 8.1 g/dl (6.3-8.2) Albumin 4.6 g/dl (3.5-5.0) Urine Color Yellow Urine Clarity Slightly-cloudy Urine pH 6.0 pH (4.8-9.5) Urine Specific [place] 1.010 Urine Protein Negative mg/dL (NEGATIVE) Urine Glucose (UA) Negative mg/dL (NEGATIVE) Urine Ketones Negative mg/dL (NEGATIVE) Urine Blood Negative (NEGATIVE) Urine Nitrite Negative (NEGATIVE) Urine Bilirubin Negative (NEGATIVE) Urine Urobilinogen Negative mg/dL (0.2-1.9) Urine Leukocyte Esterase Negative (NEGATIVE) Urine RBC None /HPF (0-2/HPF) Urine WBC 1 /HPF (0-5/HPF) Urine Squamous Epithelial Cells Many /LPF (</=FEW) Urine Bacteria Few /HPF (NONE-FEW) Urine Mucus None /HPF (NONE-FEW) Urinalysis Test 07/13/18 17:10 Urine Color Yellow Urine Clarity Slightly-cloudy Urine pH 6.0 pH (4.8-9.5) Urine Specific [place] 1.010 Urine Protein Negative mg/dL (NEGATIVE) Urine Glucose (UA) Negative mg/dL (NEGATIVE) Urine Ketones Negative mg/dL (NEGATIVE) Urine Blood Negative (NEGATIVE) Urine Nitrite Negative (NEGATIVE) Urine Bilirubin Negative (NEGATIVE) Urine Urobilinogen Negative mg/dL (0.2-1.9) Urine Leukocyte Esterase Negative (NEGATIVE) Urine RBC None /HPF (0-2/HPF) Urine WBC 1 /HPF (0-5/HPF) Urine Squamous Epithelial Cells Many /LPF (</=FEW) Urine Bacteria Few /HPF (NONE-FEW) Urine Mucus None /HPF (NONE-FEW) EKG/Imaging Imaging CCESSION #: [id number] EXAMINATION: CT facial bones without IV contrast HISTORY: Sinus infection/pressure. COMPARISON: None. TECHNIQUE: Axial images were obtained from the superior aspect of the orbits through the inferior aspect of mandible. Coronal and sagittal reformatted images were obtained from the axial source data. No IV contrast was administered. One of the following dose optimization techniques was utilized in the performance of this exam: Automated exposure control; adjustment of the mA and/or kV according to the patient's size; or use of an iterative reconstruction technique. Specific details can be referenced in the facility's radiology CT exam operational policy. FINDINGS: Soft Tissues: Negative. Mandible / TMJ: Negative. Maxillae / pterygoid plates: Negative. Zygoma / zygomatic arches: Negative. Orbits: Negative. Nasal bones / nasal septum: Negative. Frontal bones: Negative. Sinuses: Trace mucosal thickening in the left frontoethmoidal recess without significant narrowing of the left frontoethmoidal recess. The paranasal sinuses are otherwise well aerated. Visualized brain: Negative. IMPRESSION: The paranasal sinuses are well aerated with only trace mucosal thickening seen in the left frontoethmoidal recess. Report Dictated By: Devaughn Engel MD at 07/13/2018 5:42 PM Report E-Signed By: Devaughn Engel MD at 07/13/2018 5:54 PM WSN:[id number] ED Course/Re-evaluation ED Course Patient is a 43-year-old female here with complaints of frontal headache, lightheadedness, vertiginous symptoms in the setting of recent treatment of sinusitis with azithromycin followed by a current course of Keflex. Patient does have a fatigable horizontal nystagmus which may be secondary to a viral syndrome such as labyrinthitis but is most consistent with a peripheral vertigo. Patient was given normal saline bolus, meclizine, Reglan, Toradol for symptom management with improvement in symptoms. CBC was unremarkable with no leukocytosis, ESR was negative, CMP was found to be normal and urinalysis was noninfectious. CT imaging of the facial bones was completed to evaluate for bony erosion or extension of infection. CT imaging was unremarkable. I discussed the findings with the patient and she voiced understanding. Return precautions were provided. Patient was sent home with meclizigermania, Zofran and advised to complete her course of Keflex. 24-48 hour PCP follow-up recommended. Patient was hemodynamically stable, afebrile at time of discharge. Decision to Disposition Date: Jul 13, 2018 Decision to Disposition Time: 18:23 Depart Departure Latest Vital Signs Vital Signs Date Time Temp Pulse Resp B/P (MAP) Pulse Ox O2 Delivery O2 Flow Rate FiO2 07/13/18 18:04 89 94 07/13/18 18:00 102/56 (71) 07/13/18 16:28 98.5 14 Room Air Impression: Primary Impression: Dizzinesses Additional Impressions: Dehydration Sinusitis Condition: Improved Disposition: HOME OR SELF-CARE Referrals: ANDERS BOB APRN (PCP) New Scripts Meclizine Hcl (MECLIZINE HCL) 12.5 Mg Tablet 12.5 MG PO BID PRN for DIZZINESS, #20 TAB Prov: JULISSA GUERRA DO 07/13/18 Ondansetron 4 Mg Odt (ONDANSETRON 4 MG ODT) 4 Mg Tab.rapdis 4 MG PO ONCE, #20 TAB Prov: JULISSA GUERRA DO 07/13/18 Patient Instructions: Dizziness (ED) Additional Instructions: Please drink plenty of water. Please continue your current medications as prescribed including Keflex. You may take 1 tablet of Zofran every 4-6 hours as needed for nausea and vomiting, meclizine 1 tablet every 12 hours as needed for vertigo and dizziness. Please follow-up with her family doctor in the next 24 hours. Please return promptly if you develop worsening headache, pain with eye movement, fevers, weakness of the extremities, inability to keep down food or fluids, neck stiffness, double vision or visual disturbances. Problem Qualifiers JULISSA GUERRA DO Jul 13, 2018 16:32
[2018-07-13] MEDS ORDERED: NS(*) 0.9% 1000 ML BAG 1,000 ML IV ONE (16:42)
[2018-07-13] MEDS ORDERED: MECLIZINE HCL 25 MG TAB PO ONE (16:45)
[2018-07-13] MEDS ORDERED: METOCLOPRAMIDE 10 MG/2 ML SDV IVP ONE (16:45)
[2018-07-13] MEDS ORDERED: KETOROLAC 30 MG/ML VIAL IVP ONE (16:45)
[2018-07-13 16:53] LABS: PLATELET COUNT, AUTOMATED 217 K/uL (150-450)
[2018-07-13] MEDS ORDERED: GABA-549 PO (17:02)
[2018-07-13] MEDS ORDERED: CEPH-13 PO (17:02)
[2018-07-13] MEDS ORDERED: VENL37.594 PO (17:02)
[2018-07-13] MEDS ORDERED: IOPAMIDOL 76% 100 ML INFUS BTL 0 ML ONE (17:05)
--- NOTE | 2018-07-13 17:58 | RADIOLOGY IMAGING REPORT ---
FACILITY: [facility] PATIENT NAME: Phuong Estes : 1975 MR: [id number] V: [id number] EXAM DATE: ORDERING PHYSICIAN: JULISSA GUERRA TECHNOLOGIST: Location: [facility] [place] Patient: Phuong Estes : 1975 Visit/Account:[id number] Date of Sevice: 07/13/2018 EXAMINATION: CT facial bones without IV contrast HISTORY: Sinus infection/pressure. COMPARISON: None. TECHNIQUE: Axial images were obtained from the superior aspect of the orbits through the inferior as pect of mandible. Coronal and sagittal reformatted images were obtained from the axial source data. N o IV contrast was administered. One of the following dose optimization techniques was utilized in the performance of this exam: Autom ated exposure control; adjustment of the mA and/or kV according to the patient's size; or use of an i terative reconstruction technique. Specific details can be referenced in the facility's radiology C T exam operational policy. FINDINGS: Soft Tissues: Negative. Mandible / TMJ: Negative. Maxillae / pterygoid plates: Negative. Zygoma / zygomatic arches: Negative. Orbits: Negative. Nasal bones / nasal septum: Negative. Frontal bones: Negative. Sinuses: Trace mucosal thickening in the left frontoethmoidal recess without significant narrowing of the left frontoethmoidal recess. The paranasal sinuses are otherwise well aerated. Visualized brain: Negative. IMPRESSION: The paranasal sinuses are well aerated with only trace mucosal thickening seen in the left frontoethm oidal recess. Report Dictated By: Devaughn Engel MD at 07/13/2018 5:42 PM Report E-Signed By: Devaughn Engel MD at 07/13/2018 5:54 PM WSN:[id number]
[2018-07-13 18:00] VITALS: BP 102/56
[2018-07-13] MEDS ORDERED: ONDA4TAB9 PO (18:24)
[2018-07-13] MEDS ORDERED: MECL12.5 PO (18:24)
== END 2018-07-13 18:30 | disposition home or self-care (01) ==
LOC: ER 16:42
DX: R42 Dizziness and giddiness (principal); E86.0 Dehydration; J01.90 Acute sinusitis, unspecified; F17.210 Nicotine dependence, cigarettes, uncomplicated
CPT/HCPCS: 70486; 81001; 85025; 85651; 96361; 96374; 96375; 99284; J1885; J2765; J7030; J8597; 82040; 82247; 82310; 82374; 82435; 82565; 82947; 84075; 84132; 84155; 84295; 84450; 84460; 84520; Q9967

== ENCOUNTER → 2018-10-31 | Emergency (ER) | payer BC ==
[~2018-10-31] MED LIST changes: +CEPH-13 PO; +GABA-549 PO; +MECL12.5 PO; +ONDA4TAB9 PO; +VENL37.594 PO
--- NOTE | 2018-10-31 17:09 | ER Report ---
History and Physical Time Seen By MD: 17:08 HPI/ROS CHIEF COMPLAINT: Left foot and ankle pain HISTORY OF PRESENT ILLNESS: Patient is a 43-year-old female here with complaints of 3 day history of left ankle swelling, left base of 5th metatarsal tenderness. Denies discrete injury to the site. Patient has been using Gerber wrap, ibuprofen without resolution of symptoms. Patient also reports having tingling sensation in the distal digits. Denies other trauma at this time REVIEW OF SYSTEMS: Constitutional: No fever, no chills. Musculoskeletal: + Left ankle and foot pain Skin: No rashes or ecchymosis Neurological: Neurovascular exam intact, capillary refill less than 2 sec Allergies: Coded Allergies: Penicillins (Verified Allergy, Severe, QUIT BREATHING, 10/31/18) TONGUE, THROAT, SWELLS SHUT Sulfa (Sulfonamide Antibiotics) (Verified Allergy, Severe, AIRWAY SWELLS CLOSED, 10/31/18) QUITS BREATHING clindamycin (Unverified Allergy, Severe, HIVES, THROAT SWELLS., 10/31/18) doxycycline (Unverified Allergy, Severe, HIVES, THROAT SWELLS, 10/31/18) QUITS BREATHING erythromycin base (Verified Allergy, Severe, 10/31/18) PILL FORM-VOMITING IV CAUSES ARM TO TURN BLACK hydrocodone (Verified Allergy, Severe, SEIZURES, 10/31/18) latex (Verified Allergy, Severe, STOPS BREATHING, 10/31/18) HIVES AND ITCHING levofloxacin (Verified Allergy, Severe, STOPS HER BREATHING, 10/31/18) phenytoin (Verified Allergy, Intermediate, 10/31/18) DOES NOT HELP SEIZURE AND CAUSES MEMORY LOSS adhesive (Verified Allergy, Unknown, HIVES, 10/31/18) Uncoded Allergies: IV Contrast (Adverse Reaction, Unknown, 10/12/16) PT STATES SHE "BLACKED OUT AND NEEDED A SHOT IN HER STOMACH AND HAND TO BRING HER OUR OF IT" Home Meds Active Scripts Meclizine Hcl (MECLIZINE HCL) 12.5 Mg Tablet, 12.5 MG PO BID PRN for DIZZINESS, #20 TAB Prov:JULISSA GUERRA DO 07/13/18 Ondansetron 4 Mg Odt (ONDANSETRON 4 MG ODT) 4 Mg Tab.rapdis, 4 MG PO ONCE, #20 TAB Prov:JULISSA GUERRA DO 07/13/18 Ibuprofen (IBUPROFEN) 600 Mg Tablet, 1 TAB PO Q6H, #30 TAB Prov:GOLD LAMA 12/09/17 Dicyclomine Hcl (DICYCLOMINE HCL) 20 Mg Tablet, 1 TAB PO QID, #120 TAB 4 Refills Prov:SANDI DONIS MD 10/31/16 Reported Medications Venlafaxine Hcl (EFFEXOR XR) 37.5 Mg Cap.er.24h, 37.5 MG PO QDAY 07/13/18 Cephalexin (KEFLEX) 500 Mg Capsule, 500 MG PO Q6H, #28 CAP 07/13/18 Gabapentin (GABAPENTIN) 300 Mg Capsule, 300 MG PO TID, CAPSULE 07/13/18 Budesonide/Formoterol Fumarate (SYMBICORT 80-4.5 MCG INHALER) 10.2 Gm Hfa.aer.ad, 10.2 GM IH BID 12/09/17 Pantoprazole Sodium (PANTOPRAZOLE SODIUM) 40 Mg Tablet.dr, 40 MG PO QDAY, TAB.SR 10/12/16 Albuterol Sulfate (VENTOLIN HFA) 18 Gm Inh, 1-2 PUFF INH 3-4XD PRN for WHEEZING, INH 09/12/16 Diphenhydramine Hcl (BENADRYL ALLERGY) 25 Mg Tablet, 25 MG PO PRN, TAB 08/30/16 Hx Smoking: Yes (1.5 ppd x 30 yrs ) Smoking Status: Current: Every Day Smoker Exposure to Second Hand Smoke?: Yes Hx Substance Use Disorder: No Hx Alcohol Use: No Constitutional Vital Sign - Last 24 Hours 10/31/18 10/31/18 10/31/18 10/31/18 17:14 17:19 17:19 17:24 Temp 98.4 Pulse 123 106 102 107 Resp 16 B/P (MAP) 130/89 (103) 130/89 Pulse Ox 96 92 93 90 O2 Delivery Room Air 10/31/18 10/31/18 10/31/18 17:29 17:34 17:39 Pulse 106 98 103 Pulse Ox 92 92 92 Physical Exam General Appearance: The patient is alert, has no immediate need for airway protection and no signs of toxicity. No acute distress Neurological: Neurovascular exam intact, capillary refill less than 3 seconds Skin: Warm and dry, no rashes or ecchymosis Musculoskeletal: + Tenderness on palpation of the patient's base of 5th metatarsal and left foot, lateral malleolus DIFFERENTIAL DIAGNOSIS: After history and physical exam differential diagnosis was considered for fracture, contusion, abrasion, sprain Medical Decision Making EKG/Imaging Imaging See official radiology report for x-ray imaging of foot and ankle ED Course/Re-evaluation ED Course Patient is a 43-year-old female here with complaints of left ankle and base of 5th metatarsal pain, swelling for approximately 3 days. Patient reportedly went to [facility] today and reports worsening pain. Patient is using Gerber wrap, ibuprofen without resolution. Patient denies any distinct traumatic episode precipitating the pain. X-ray imaging showed no acute fractures. Conservative measures recommended, ice, rest, elevate, Gerber wrap or brace as needed. Recommend NSAIDs. Return precautions provided. PCP follow-up recommended. Decision to Disposition Date: October 31, 2018 Decision to Disposition Time: 18:16 Depart Departure Latest Vital Signs Vital Signs Date Time Temp Pulse Resp B/P (MAP) Pulse Ox O2 Delivery O2 Flow Rate FiO2 10/31/18 17:39 103 92 10/31/18 17:19 98.4 16 130/89 Room Air Impression: Primary Impression: Ankle sprain Condition: Improved Disposition: HOME OR SELF-CARE Referrals: ANDERS BOB APRN (PCP) New Scripts Tramadol Hcl (TRAMADOL HCL) 50 Mg Tablet 50 MG PO Q6H PRN for PAIN, #6 TAB 0 Refills Prov: JULISSA GUERRA DO 10/31/18 Patient Instructions: Ankle Sprain (ED) Additional Instructions: No acute fractures are identified on x-ray imaging. Please use Gerber wrap, take NSAIDs or Tylenol as needed for primary pain control, you may take 1 tablet of tramadol every 6-8 hours as needed for breakthrough pain control. Do not drive or drink alcohol while on this medication as it can be sedating. Please follow- up with your primary care provider in the next 3-5 days as needed. JULISSA GUERRA DO October 31, 2018 17:09
[2018-10-31 17:19] VITALS: BP 130/89
--- NOTE | 2018-10-31 18:13 | RADIOLOGY IMAGING REPORT ---
FACILITY: [facility] PATIENT NAME: Phuong Estes : 1975 MR: [id number] V: [id number] EXAM DATE: ORDERING PHYSICIAN: JULISSA GUERRA [place]CHNOLOG[place]: [place] [facility] [place] Phuong [place] : 1975 Visit/Account:[id number] Date of Sevice: 10/31/2018 EXAMINATION: Left foot radiographs 3 views HISTORY: Pain for 3 days. COMPARISON: 01/16/2010. FINDINGS: AP, lateral and oblique views of the left foot are obtained. Bones: No acute abnormality. Small calcaneal enthesophyte at the Achilles insertion. Joint spaces: Negative. Hardware: None. Alignment: Normal. Soft tissues: Negative. IMPRESSION: No acute osseous abnormality of the left foot. Report Dictated By: Devaughn Engel MD at 10/31/2018 6:04 PM Report E-Signed By: Devaughn Engel MD at 10/31/2018 6:09 PM WSN:[id number]
--- NOTE | 2018-10-31 18:15 | RADIOLOGY IMAGING REPORT ---
FACILITY: [facility] PATIENT NAME: Phuong Estes : 1975 MR: [id number] V: [id number] EXAM DATE: ORDERING PHYSICIAN: JULISSA GUERRA TECHNOLOGIST: Location: [facility] Patient: Phuong Estes : 1975 Visit/Account:[id number] Date of Sevice: 10/31/2018 EXAMINATION: ANKLE 2 VIEW LEFT HISTORY: pain x 3 days COMPARISON: 12/09/2017. FINDINGS: 2 views of the left ankle are obtained. Bones: Negative. Joint spaces: Negative. Hardware: None. Alignment: Normal. Soft tissues: Negative. IMPRESSION: No acute osseous abnormality of the left ankle. Report Dictated By: Devaughn Engel MD at 10/31/2018 6:09 PM Report E-Signed By: Devaughn Engel MD at 10/31/2018 6:11 PM WSN:[id number]
== END ==
LOC: ER 17:11
DX: S93.402A Sprain of unspecified ligament of left ankle, initial encounter (principal)
CPT/HCPCS: 99284

== ENCOUNTER 2018-12-20 20:01 | Emergency (ER) | payer SELFPAY ==
[~2018-12-20 20:01] MED LIST changes: -OMEP-125 PO; +OMEP-126 PO
--- NOTE | 2018-12-20 20:11 | ER Report ---
History and Physical Time Seen By MD: 20:09 Hx. of Stated Complaint: patient started having pain and swelling in her left hip 4days ago. patient has been taking mortin and leana ice to hip, pain has been getting worse, patient states it hurts to walk, sit, and lay. HPI/ROS CHIEF COMPLAINT: Left hip pain HISTORY OF PRESENT ILLNESS: 43-year-old female patient presents to emergency room with complaint of left hip pain. Patient states that this been going on for the past 4 days. Patient denies any injury, however she states she has had some significant swelling. She denies any numbness tingling to the foot. She states the pain seems to worse along the buttock and into the low back. Patient states that she does not work outside the home, however does spend her time taking care of her elderly mother as well as her special needs children. Patient denies any injury with working in the home. Patient states that she's taken Motrin with no improvement. REVIEW OF SYSTEMS: Respiratory: No cough, no dyspnea. Cardiovascular: No chest pain, no palpitations. Gastrointestinal: No vomiting, no abdominal pain. Musculoskeletal: As noted above Allergies: Coded Allergies: Penicillins (Verified Allergy, Severe, QUIT BREATHING, 12/20/18) TONGUE, THROAT, SWELLS SHUT Sulfa (Sulfonamide Antibiotics) (Verified Allergy, Severe, AIRWAY SWELLS CLOSED, 12/20/18) QUITS BREATHING clindamycin (Unverified Allergy, Severe, HIVES, THROAT SWELLS., 12/20/18) doxycycline (Unverified Allergy, Severe, HIVES, THROAT SWELLS, 12/20/18) QUITS BREATHING erythromycin base (Verified Allergy, Severe, 12/20/18) PILL FORM-VOMITING IV CAUSES ARM TO TURN BLACK hydrocodone (Verified Allergy, Severe, SEIZURES, 12/20/18) latex (Verified Allergy, Severe, STOPS BREATHING, 12/20/18) HIVES AND ITCHING levofloxacin (Verified Allergy, Severe, STOPS HER BREATHING, 12/20/18) phenytoin (Verified Allergy, Intermediate, 12/20/18) DOES NOT HELP SEIZURE AND CAUSES MEMORY LOSS adhesive (Verified Allergy, Unknown, HIVES, 12/20/18) Uncoded Allergies: IV Contrast (Adverse Reaction, Unknown, 10/12/16) PT STATES SHE "BLACKED OUT AND NEEDED A SHOT IN HER STOMACH AND HAND TO BRING HER OUR OF IT" Home Meds Active Scripts Tramadol Hcl (TRAMADOL HCL) 50 Mg Tablet, 50 MG PO Q4-6H, #8 TAB Prov:SAL LOGAN PROMOS EXECUTIVE PRODUCER 12/20/18 Prednisone (PREDNISONE) 20 Mg Tablet, 20 MG PO BID, #8 TAB Prov:SAL LOGAN PROMOS EXECUTIVE PRODUCER 12/20/18 Meclizine Hcl (MECLIZINE HCL) 12.5 Mg Tablet, 12.5 MG PO BID PRN for DIZZINESS, #20 TAB Prov:JULISSA GUERRA DO 07/13/18 Ibuprofen (IBUPROFEN) 600 Mg Tablet, 1 TAB PO Q6H, #30 TAB Prov:GOLD LAMA 12/09/17 Dicyclomine Hcl (DICYCLOMINE HCL) 20 Mg Tablet, 1 TAB PO QID, #120 TAB 4 Refills Prov:SANDI DONIS MD 10/31/16 Reported Medications Venlafaxine Hcl (EFFEXOR XR) 37.5 Mg Cap.er.24h, 37.5 MG PO QDAY 07/13/18 Gabapentin (GABAPENTIN) 300 Mg Capsule, 300 MG PO TID, CAPSULE 07/13/18 Budesonide/Formoterol Fumarate (SYMBICORT 80-4.5 MCG INHALER) 10.2 Gm Hfa.a er.ad, 10.2 GM IH BID 12/09/17 Pantoprazole Sodium (PANTOPRAZOLE SODIUM) 40 Mg Tablet.dr, 40 MG PO QDAY, TAB.SR 10/12/16 Albuterol Sulfate (VENTOLIN HFA) 18 Gm Inh, 1-2 PUFF INH 3-4XD PRN for WHEEZING, INH 09/12/16 Diphenhydramine Hcl (BENADRYL ALLERGY) 25 Mg Tablet, 25 MG PO PRN, TAB 08/30/16 Discontinued Reported Medications Cephalexin (KEFLEX) 500 Mg Capsule, 500 MG PO Q6H, #28 CAP 07/13/18 Discontinued Scripts Tramadol Hcl (TRAMADOL HCL) 50 Mg Tablet, 50 MG PO Q6H PRN for PAIN, #6 TAB 0 Refills Prov:JULISSA GUERRA DO 10/31/18 Ondansetron 4 Mg Odt (ONDANSETRON 4 MG ODT) 4 Mg Tab.rapdis, 4 MG PO ONCE, #20 TAB Prov:JULISSA GUERRA DO 07/13/18 Past Medical/Surgical History Patient has a past medical history of asthma, reflux, bipolar. Reviewed Nurses Notes: Yes Hx Smoking: Yes (1.5 ppd x 30 yrs ) Smoking Status: Current: Every Day Smoker Exposure to Second Hand Smoke?: Yes Hx Substance Use Disorder: No Hx Alcohol Use: No Constitutional Vital Sign - Last 24 Hours 12/20/18 12/20/18 20:08 20:30 Temp 97.8 Pulse 89 86 Resp 16 B/P (MAP) 133/71 121/89 (100) Pulse Ox 96 93 O2 Delivery Room Air Physical Exam General Appearance: The patient is alert, has no immediate need for airway protection and no current signs of toxicity. Respiratory: Chest is non tender, lungs are clear to auscultation. Cardiac: regular rate and rhythm Gastrointestinal: Abdomen is soft and non tender, no masses, bowel sounds normal. Musculoskeletal: Neck: Neck is supple and non tender. Back: Patient does have tenderness to the left buttock, seems to radiate up into the low back, as well as the left hip. Extremities have full range of motion and are non tender. Skin: No rashes or lesions. DIFFERENTIAL DIAGNOSIS: After history and physical exam differential diagnosis was considered for sciatica, fracture, contusion. Medical Decision Making EKG/Imaging Imaging L-SPINE >4 VIEWS HISTORY: Onset of left hip pain/sciatica pain. COMPARISON: 02/10/2018 and studies dating to 11/14/2006. Sacroiliac joint x-rays are performed at the same time as the current examination. TECHNIQUE: AP, right and left oblique, and lateral views of the lumbar spine. FINDINGS: There are 5 nonrib-bearing lumbar type vertebral bodies. Vertebral body heights are maintained. Normal facets. No listhesis. IMPRESSION: 1. Normal lumbar spine. Report Dictated By: Ruthie Padilla at 12/20/2018 9:22 PM Report E-Signed By: Ruthie Padilla at 12/20/2018 9:24 PM SACROILIAC JOINT 3 OR > VIEWS HISTORY: Left hip/sciatic pain. COMPARISON: 02/10/2018. Lumbar spine x-rays were performed at the same time as the current examination. TECHNIQUE: AP and right and left oblique views of the sacroiliac joints. FINDINGS: There is no fracture or dislocation. The sacroiliac joints are patent without widening. There is no pubic diastases. IMPRESSION: 1. Normal sacroiliac joints. Report Dictated By: Ruthie Padilla at 12/20/2018 9:24 PM Report E-Signed By: Ruthie Padilla at 12/20/2018 9:25 PM ED Course/Re-evaluation ED Course Patient was admitted to exam room, history and physical were obtained. Differential diagnoses were considered. On examination lungs are clear, heart is regular, abdomen soft nontender. Patient did have some tenderness in the left buttock, which radiated up to the low back. X-rays done of the low back, as well as the SI joints. X-rays were unremarkable. I discussed the findings with the patient and her . We'll go ahead and discharge her home at this time. We'll start her on prednisone for sciatica as well as Tylenol to help with the pain in the meantime. She is follow-up with primary care provider in one week. She struck her to emergency room if condition worsens. Patient verbalized understanding and agreement with plan. Decision to Disposition Date: Dec 20, 2018 Decision to Disposition Time: 21:38 Depart Departure Latest Vital Signs Vital Signs Date Time Temp Pulse Resp B/P (MAP) Pulse Ox O2 Delivery O2 Flow Rate FiO2 12/20/18 20:30 86 121/89 (100) 93 12/20/18 20:08 97.8 16 Room Air Impression: Primary Impression: Sciatic leg pain Condition: Improved Disposition: HOME OR SELF-CARE Referrals: ANDERS BOB APRN (PCP) New Scripts Tramadol Hcl (TRAMADOL HCL) 50 Mg Tablet 50 MG PO Q4-6H, #8 TAB Prov: SAL LOGAN 12/20/18 Prednisone (PREDNISONE) 20 Mg Tablet 20 MG PO BID, #8 TAB Prov: SAL LOGAN 12/20/18 Patient Instructions: Sciatica (ED) Additional Instructions: Limit activity by pain. Get plenty of rest. You may alternate ice and heat. Take the medication as directed. Follow up with your primary care provider in the next week. Return to the ER if condition worsens. SAL LOGAN Dec 20, 2018 20:11
[2018-12-20 20:45] VITALS: BP 116/90
--- NOTE | 2018-12-20 21:29 | RADIOLOGY IMAGING REPORT ---
FACILITY: [facility] [place] PATIENT NAME: Phuong Estes : 1975 MR: [id number] V: [id number] EXAM DATE: ORDERING PHYSICIAN: SAL LOGAN TECHNOLOGIST: [place] [facility] [place] Phuong Estes : 1975 Visit/Account:[id number] Date of Sevice: 12/20/2018 L-SPINE >4 VIEWS HISTORY: Onset of left hip pain/sciatica pain. COMPARISON: 02/10/2018 and studies dating to 11/14/2006. Sacroiliac joint x-rays are performed at the s elizabeth time as the current examination. TECHNIQUE: AP, right and left oblique, and lateral views of the lumbar spine. FINDINGS: There are 5 nonrib-bearing lumbar type vertebral bodies. Vertebral body heights are maintai ana lilia. Normal facets. No listhesis. IMPRESSION: 1. Normal lumbar spine. Report Dictated By: Ruthie Padilla at 12/20/2018 9:22 PM Report E-Signed By: Ruthie Padilla at 12/20/2018 9:24 PM WSN:[id number]
--- NOTE | 2018-12-20 21:32 | RADIOLOGY IMAGING REPORT ---
[place] [facility] [place] NAME: Phuong Estes : 1975 MR: [id number] V: [id number] EXAM DATE: ORDERING PHYSICIAN: SAL LOGAN TECHNOLOGIST: Location: [facility] [place] Patient: Phuong Estes : 1975 Visit/Account:[id number] Date of Sevice: 12/20/2018 SACROILIAC JOINT 3 OR > VIEWS HISTORY: Left hip/sciatic pain. COMPARISON: 02/10/2018. Lumbar spine x-rays were performed at the same time as the current examination . TECHNIQUE: AP and right and left oblique views of the sacroiliac joints. FINDINGS: There is no fracture or dislocation. The sacroiliac joints are patent without widening. The re is no pubic diastases. IMPRESSION: 1. Normal sacroiliac joints. Report Dictated By: Ruthie Padilla at 12/20/2018 9:24 PM Report E-Signed By: Ruthie Padilla at 12/20/2018 9:25 PM WSN:[id number]
[2018-12-20] MEDS ORDERED: traMADol 50 MG TAB TH 2 TAB/BOTTLE PO ONE (21:35)
[2018-12-20] MEDS ORDERED: predniSONE 20 MG TAB PO ONE (21:35)
[2018-12-20] MEDS ORDERED: PRED20TA6 PO (21:41)
[2018-12-20] MEDS ORDERED: TRAM-420 PO (21:41)
== END 2018-12-20 21:47 | disposition home or self-care (01) ==
LOC: ER 20:21
DX: M54.42 Lumbago with sciatica, left side (principal)
CPT/HCPCS: 72120; 72202; 99284; C9399; J7512

== ENCOUNTER 2019-01-05 19:07 | Emergency (ER) | payer SELFPAY ==
--- NOTE | 2019-01-05 19:18 | ER Report ---
History and Physical Time Seen By MD: 19:14 Hx. of Stated Complaint: PT TRIPPED OVER GAS LINE AT GAS STATION AND HIT LEFT SIDE OF BODY ON CAR. PT REPORTS PAIN IN LEFT WRIST, ELBOW, SHOULDER, NECK AND LEFT SIDED BACK. HPI/ROS CHIEF COMPLAINT: Fall HISTORY OF PRESENT ILLNESS: This is a 43-year-old female who presents to emergency department for a fall. Patient states that about 4-1/2 hours ago she tripped over the gas line at the gas station, fell into her car she states injuring her left wrist, left elbow and left upper arm. She states she drove home, took some ibuprofen about an hour and a half later, wait until her came home and decided to come into the ER for an evaluation. She is complaining of C-spine tenderness. She also states there is swelling to the left wrist. She denies loss of consciousness, denies hitting her head. No chest pain or shortness of breath. REVIEW OF SYSTEMS: Constitutional: No fever, no chills. Eyes: No discharge. ENT: No sore throat. Cardiovascular: No chest pain, no palpitations. Respiratory: No cough, no shortness of breath. Gastrointestinal: No abdominal pain, no vomiting. Genitourinary: No hematuria. Musculoskeletal: As above. Skin: No rashes. Neurological: No headache. Allergies: Coded Allergies: Penicillins (Verified Allergy, Severe, QUIT BREATHING, 01/05/19) TONGUE, THROAT, SWELLS SHUT Sulfa (Sulfonamide Antibiotics) (Verified Allergy, Severe, AIRWAY SWELLS CLOSED, 01/05/19) QUITS BREATHING clindamycin (Unverified Allergy, Severe, HIVES, THROAT SWELLS., 01/05/19) doxycycline (Unverified Allergy, Severe, HIVES, THROAT SWELLS, 01/05/19) QUITS BREATHING erythromycin base (Verified Allergy, Severe, 01/05/19) PILL FORM-VOMITING IV CAUSES ARM TO TURN BLACK hydrocodone (Verified Allergy, Severe, SEIZURES, 01/05/19) latex (Verified Allergy, Severe, STOPS BREATHING, 01/05/19) HIVES AND ITCHING levofloxacin (Verified Allergy, Severe, STOPS HER BREATHING, 01/05/19) phenytoin (Verified Allergy, Intermediate, 01/05/19) DOES NOT HELP SEIZURE AND CAUSES MEMORY LOSS adhesive (Verified Allergy, Unknown, HIVES, 01/05/19) Uncoded Allergies: IV Contrast (Adverse Reaction, Unknown, 10/12/16) PT STATES SHE "BLACKED OUT AND NEEDED A SHOT IN HER STOMACH AND HAND TO BRING HER OUR OF IT" Home Meds Active Scripts Tramadol Hcl (TRAMADOL HCL) 50 Mg Tablet, 50 MG PO Q4-6H, #8 TAB Prov:SAL LOGAN COMMERCIAL ACCOUNT MANAGER 12/20/18 Prednisone (PREDNISONE) 20 Mg Tablet, 20 MG PO BID, #8 TAB Prov:SAL LOGAN COMMERCIAL ACCOUNT MANAGER 12/20/18 Meclizine Hcl (MECLIZINE HCL) 12.5 Mg Tablet, 12.5 MG PO BID PRN for DIZZINESS, #20 TAB Prov:JULISSA GUERRA DO 07/13/18 Ibuprofen (IBUPROFEN) 600 Mg Tablet, 1 TAB PO Q6H, #30 TAB Prov:GOLD LAMA 12/09/17 Dicyclomine Hcl (DICYCLOMINE HCL) 20 Mg Tablet, 1 TAB PO QID, #120 TAB 4 Refills Prov:SANID DONIS MD 10/31/16 Reported Medications Venlafaxine Hcl (EFFEXOR XR) 37.5 Mg Cap.er.24h, 37.5 MG PO QDAY 07/13/18 Gabapentin (GABAPENTIN) 300 Mg Capsule, 300 MG PO TID, CAPSULE 07/13/18 Budesonide/Formoterol Fumarate (SYMBICORT 80-4.5 MCG INHALER) 10.2 Gm Hfa.aer.ad, 10.2 GM IH BID 12/09/17 Pantoprazole Sodium (PANTOPRAZOLE SODIUM) 40 Mg Tablet.dr, 40 MG PO QDAY, TAB.SR 10/12/16 Albuterol Sulfate (VENTOLIN HFA) 18 Gm Inh, 1-2 PUFF INH 3-4XD PRN for WHEEZING, INH 09/12/16 Diphenhydramine Hcl (BENADRYL ALLERGY) 25 Mg Tablet, 25 MG PO PRN, TAB 08/30/16 Past Medical/Surgical History The patient states she has a past medical and surgical history of stress-induced seizures, seizures from head trauma, headaches, pericardial cyst, angina, bronchitis, pneumonia, GERD, gallbladder disease, ovarian cysts, "worn tendons in right shoulder", arthritis, osteoporosis, left ankle fracture, finger fracture, rib fracture, skull fracture, chronic back pain secondary to a work injury, "bleeds easily", anxiety, depression, PTSD, cervical cancer, abdominal adhesions, appendectomy, cholecystectomy, hysterectomy, tubal ligation. Reviewed Nurses Notes: Yes Hx Smoking: Yes (1.5 ppd x 30 yrs ) Smoking Status: Current: Every Day Smoker Exposure to Second Hand Smoke?: Yes Hx Substance Use Disorder: No Hx Alcohol Use: No Constitutional Physical Exam General Appearance: The patient is alert, has no immediate need for airway protection and no signs of toxicity. Eyes: Pupils equal and round no pallor or injection. ENT, Mouth: Mucous membranes are moist. Respiratory: There are no retractions, lungs are clear to auscultation. Cardiovascular: Regular rate and rhythm. Gastrointestinal: Abdomen is soft and non tender, no masses, bowel sounds normal. Neurological: Alert and oriented 4. Moving all extremities. Following all commands. No focal neurodeficits. Skin: Warm and dry, no rashes. Musculoskeletal: Neck is supple, mild tenderness to the C6-C7. Extremities Examination of the Left hand reveals no acute deformity. The patient is able to give a thumbs up sign, is able to make an okay sign, and is able to AB duct the fingers. Sensation is intact over the dorsal 1st web space, the volar aspect of the 2nd finger, and the volar aspect of the 5th finger. Capillary refill is brisk. There is mild swelling to the dorsum of the left di stal forearm. No crepitus or obvious deformities. Pain to the left medial elbow and the humerus. No deformities or crepitus identified. DIFFERENTIAL DIAGNOSIS: After history and physical exam differential diagnosis was considered for contusion, fracture, subluxation. Medical Decision Making EKG/Imaging Imaging PATIENT NAME: Phuong Estes : 1975 MR: [id number] V: [id number] EXAM DATE: ORDERING PHYSICIAN: XAVI CAVANAUGH TECHNOLOGIST: Location: [facility] [place] Patient: Phuong Estes : 1975 Visit/Account:[id number] Date of Sevice: 01/05/2019 EXAMINATION: CT cervical spine without IV contrast HISTORY: Fall. Cervical spine pain. TECHNIQUE: Thin axial CT images of the cervical spine were obtained without IV contrast, with sagittal and coronal 2D reconstructed images. One of the following dose optimization techniques was utilized in the performance of this exam: Automated exposure control; adjustment of the mA and/or kV according to the patient's size; or use of an iterative reconstructio n technique. Specific details can be referenced in the facility's radiology CT exam operational policy. COMPARISON: None. FINDINGS: The cervical spine is negative for acute fracture or subluxation. Normal alignment. Vertebral body height and disc spaces are preserved. The dens is intact. The craniocervical junction demonstrates normal alignment. IMPRESSION: Negative cervical spine CT. Report Dictated By: Manuel Menchaca MD at 01/05/2019 8:19 PM Report E-Signed By: Manuel Menchaca MD at 01/05/2019 8:28 PM WSN:[id number] Course/Re-evaluation ED Course The patient was admitted to room. A history and physical obtained. Differential diagnoses were considered. An x-ray of the left shoulder, left elbow and wrist were negative for any acute osseous center maladies.. A CT of the cervical spine was negative for any acute osseous abnormalities. The patient's c-collar was removed. Patient had good flexion, extension and rotation after the c-collar was removed. The results were reviewed with the patient. Instructed to follow-up with her primary care provider, take ibuprofen or Tylenol as needed for pain. Patient was given 60 mg IM Norflex in the emergency department. Decision to Disposition Date: Jan 05, 2019 Decision to Disposition Time: 21:32 Depart Departure Latest Vital Signs Impression: Primary Impression: Fall Additional Impression: Contusion of multiple sites Condition: Improved Disposition: HOME OR SELF-CARE Referrals: ANDERS BOB APRN (PCP) 1 Week Patient Instructions: Contusion in Adults (ED), Fall Prevention (ED) Additional Instructions: No concerning findings on the x-rays or CT. Ibuprofen or Tylenol as needed for pain per Return to the emergency department for any other concerns or worsening symptoms. Primary care provider within one week for reevaluation if no improvement. Problem Qualifiers Primary Impression: Fall Encounter type: initial encounter Qualified Codes: W19.XXXA - Unspecified fall, initial encounter XAVI CAVANAUGH COMMERCIAL ACCOUNT MANAGER-BC Jan 05, 2019 19:18
--- NOTE | 2019-01-05 20:33 | RADIOLOGY IMAGING REPORT ---
FACILITY: [facility] [place] PATIENT NAME: Phuong Estes : 1975 MR: [id number] V: [id number] EXAM DATE: ORDERING PHYSICIAN: XAVI CAVANAUGH TECHNOLOGIST: Location: [facility] [place] Patient: Phuong Estes : 1975 Visit/Account:[id number] Date of Sevice: 01/05/2019 EXAMINATION: CT cervical spine without IV contrast HISTORY: Fall. Cervical spine pain. TECHNIQUE: Thin axial CT images of the cervical spine were obtained without IV contrast, with sagit andrea and coronal 2D reconstructed images. One of the following dose optimization techniques was utilized in the performance of this exam: Autom ated exposure control; adjustment of the mA and/or kV according to the patient's size; or use of an i terative reconstruction technique. Specific details can be referenced in the facility's radiology C T exam operational policy. COMPARISON: None. FINDINGS: The cervical spine is negative for acute fracture or subluxation. Normal alignment. Vertebral body height and disc spaces are preserved. The dens is intact. The craniocervical junction demonstrates normal alignment. IMPRESSION: Negative cervical spine CT. Report Dictated By: Manuel Menchaca MD at 01/05/2019 8:19 PM Report E-Signed By: Manuel Menchaca MD at 01/05/2019 8:28 PM WSN:[id number]
[2019-01-05] MEDS ORDERED: ORPHENADRINE 60MG/2ML INJ IM ONE (20:40)
[2019-01-05 21:30] VITALS: BP 124/112
--- NOTE | 2019-01-05 21:32 | RADIOLOGY IMAGING REPORT ---
FACILITY: [facility] PATIENT NAME: Phuong Estes : 1975 MR: [id number] V: [id number] EXAM DATE: ORDERING PHYSICIAN: XAVI CAVANAUGH TECHNOLOGIST: Location: [facility] Patient: Phuong Estes : 1975 Visit/Account:[id number] Date of Sevice: 01/05/2019 EXAMINATION: Left humerus, 2 views Left elbow, 3 views Left wrist, 3 views 01/05/2019 7:33 PM HISTORY: fall, pain COMPARISON: Left elbow and left wrist 05/10/2017 FINDINGS: Humerus: Bony humerus is intact without fracture or other acute osseous injury. Shoulder and elbow ar ticulations are well-preserved. Elbow: Bony structures and elbow are intact and anatomically aligned. Radiocapitellar alignment is no rmal. No visible joint effusion. Wrist: Bony structures in the left wrist are intact and anatomically aligned without fracture or othe r acute osseous abnormality. IMPRESSION: 1. Negative left humerus series. 2. Negative left elbow series. 3. Negative left wrist series. Report Dictated By: Kishore Atkins MD at 01/05/2019 9:24 PM Report E-Signed By: Kishore Atkins MD at 01/05/2019 9:27 PM WSN:[id number]
--- NOTE | 2019-01-05 21:33 | RADIOLOGY IMAGING REPORT ---
FACILITY: [facility] PATIENT NAME: Phuong Estes : 1975 MR: [id number] V: [id number] EXAM DATE: ORDERING PHYSICIAN: XAVI CAVANAUGH TECHNOLOGIST: Location: [facility] [place] Patient: Phuong Estes : 1975 Visit/Account:[id number] Date of Sevice: 01/05/2019 EXAMINATION: Left humerus, 2 views Left elbow, 3 views Left wrist, 3 views 01/05/2019 7:33 PM HISTORY: fall, pain COMPARISON: Left elbow and left wrist 05/10/2017 FINDINGS: Humerus: Bony humerus is intact without fracture or other acute osseous injury. Shoulder and elbow ar ticulations are well-preserved. Elbow: Bony structures and elbow are intact and anatomically aligned. Radiocapitellar alignment is no rmal. No visible joint effusion. Wrist: Bony structures in the left wrist are intact and anatomically aligned without fracture or othe r acute osseous abnormality. IMPRESSION: 1. Negative left humerus series. 2. Negative left elbow series. 3. Negative left wrist series. Report Dictated By: Kishore Atkins MD at 01/05/2019 9:24 PM Report E-Signed By: Kishore Atkins MD at 01/05/2019 9:27 PM WSN:[id number]
--- NOTE | 2019-01-05 21:33 | RADIOLOGY IMAGING REPORT ---
FACILITY: [facility] PATIENT NAME: Phuong Estes : 1975 MR: [id number] V: [id number] EXAM DATE: ORDERING PHYSICIAN: XAVI CAVANAUGH TECHNOLOGIST: Location: [facility] Patient: Phuong Estes : 1975 Visit/Account:[id number] Date of Sevice: 01/05/2019 EXAMINATION: Left humerus, 2 views Left elbow, 3 views Left wrist, 3 views 01/05/2019 7:33 PM HISTORY: fall, pain COMPARISON: Left elbow and left wrist 05/10/2017 FINDINGS: Humerus: Bony humerus is intact without fracture or other acute osseous injury. Shoulder and elbow ar ticulations are well-preserved. Elbow: Bony structures and elbow are intact and anatomically aligned. Radiocapitellar alignment is no rmal. No visible joint effusion. Wrist: Bony structures in the left wrist are intact and anatomically aligned without fracture or othe r acute osseous abnormality. IMPRESSION: 1. Negative left humerus series. 2. Negative left elbow series. 3. Negative left wrist series. Report Dictated By: Kishore Atkins MD at 01/05/2019 9:24 PM Report E-Signed By: Kishore Atkins MD at 01/05/2019 9:27 PM WSN:[id number]
== END 2019-01-05 21:38 | disposition home or self-care (01) ==
LOC: ER 19:39
DX: C54.2 Malignant neoplasm of myometrium (principal)
CPT/HCPCS: 72125; 73060; 73080; 73110; 96372; 99284; J2360; L0172

== ENCOUNTER 2019-02-07 16:48 | Emergency (ER) | payer SELFPAY ==
--- NOTE | 2019-02-07 16:51 | ER Report ---
History and Physical Time Seen By MD: 16:47 HPI/ROS CHIEF COMPLAINT: Left wrist pain HISTORY OF PRESENT ILLNESS: Patient is a 43-year-old female who states that 2 weeks ago she tripped over a small dog and fell on an outstretched left hand. She has pain at the snuffbox area. She was not seen at that time thinking this was just a sprain. She still is having pain in difficulty with range of motion of the wrist. She did purchase a thumb splint from [employer] and has been using that and taking jjnj-fwk-motgzil medications however patient is still having pain. Patient is right hand dominant. Allergies: Coded Allergies: Penicillins (Verified Allergy, Severe, QUIT BREATHING, 01/05/19) TONGUE, THROAT, SWELLS SHUT Sulfa (Sulfonamide Antibiotics) (Verified Allergy, Severe, AIRWAY SWELLS CLOSED, 01/05/19) QUITS BREATHING clindamycin (Unverified Allergy, Severe, HIVES, THROAT SWELLS., 01/05/19) doxycycline (Unverified Allergy, Severe, HIVES, THROAT SWELLS, 01/05/19) QUITS BREATHING erythromycin base (Verified Allergy, Severe, 01/05/19) PILL FORM-VOMITING IV CAUSES ARM TO TURN BLACK hydrocodone (Verified Allergy, Severe, SEIZURES, 01/05/19) latex (Verified Allergy, Severe, STOPS BREATHING, 01/05/19) HIVES AND ITCHING levofloxacin (Verified Allergy, Severe, STOPS HER BREATHING, 01/05/19) phenytoin (Verified Allergy, Intermediate, 01/05/19) DOES NOT HELP SEIZURE AND CAUSES MEMORY LOSS adhesive (Verified Allergy, Unknown, HIVES, 01/05/19) Uncoded Allergies: IV Contrast (Adverse Reaction, Unknown, 10/12/16) PT STATES SHE "BLACKED OUT AND NEEDED A SHOT IN HER STOMACH AND HAND TO BRING HER OUR OF IT" Home Meds Active Scripts Tramadol Hcl (TRAMADOL HCL) 50 Mg Tablet, 50 MG PO Q4-6H, #8 TAB Prov:[facility] 12/20/18 Prednisone (PREDNISONE) 20 Mg Tablet, 20 MG PO BID, #8 TAB Prov:[facility] 12/20/18 Meclizine Hcl (MECLIZINE HCL) 12.5 Mg Tablet, 12.5 MG PO BID PRN for DIZZINESS, #20 TAB Prov:GUERRA,JULISSA S DO 07/13/18 Ibuprofen (IBUPROFEN) 600 Mg Tablet, 1 TAB PO Q6H, #30 TAB Prov:GOLD LAMA 12/09/17 Dicyclomine Hcl (DICYCLOMINE HCL) 20 Mg Tablet, 1 TAB PO QID, #120 TAB 4 Refills Prov:SANDI DONIS MD 10/31/16 Reported Medications Venlafaxine Hcl (EFFEXOR XR) 37.5 Mg Cap.er.24h, 37.5 MG PO QDAY 07/13/18 Gabapentin (GABAPENTIN) 300 Mg Capsule, 300 MG PO TID, CAPSULE 07/13/18 Budesonide/Formoterol Fumarate (SYMBICORT 80-4.5 MCG INHALER) 10.2 Gm Hfa.aer.ad, 10.2 GM IH BID 12/09/17 Pantoprazole Sodium (PANTOPRAZOLE SODIUM) 40 Mg Tablet.dr, 40 MG PO QDAY, TAB.SR 10/12/16 Albuterol Sulfate (VENTOLIN HFA) 18 Gm Inh, 1-2 PUFF INH 3-4XD PRN for WHEEZING, INH 09/12/16 Diphenhydramine Hcl (BENADRYL ALLERGY) 25 Mg Tablet, 25 MG PO PRN, TAB 08/30/16 Past Medical/Surgical History Noncontributory towards this chief complaint Hx Smoking: Yes (1.5 ppd x 30 yrs ) Smoking Status: Current: Every Day Smoker Exposure to Second Hand Smoke?: Yes Hx Substance Use Disorder: No Hx Alcohol Use: No Constitutional Vital Sign - Last 24 Hours 02/07/19 16:52 Temp 97.6 Pulse 100 Resp 18 B/P (MAP) 113/74 Pulse Ox 94 O2 Delivery Room Air Physical Exam General appearance: Alert no distress. Examination of the Left hand reveals no acute deformity. The patient is able to give a thumbs up sign, is able to make an okay sign, and is able to AB duct the fingers. Sensation is intact over the dorsal 1st web space, the volar aspect of the 2nd finger, and the volar aspect of the 5th finger. Capillary refill is brisk. Patient does have pain to the snuffbox area Medical Decision Making ED Course/Re-evaluation ED Course 02/07/2019 5:07:52 pm plan at this time will be to x-ray of the left hand but we will CT the left wrist. 02/07/2019 5:52:46 pm patient is signing out AMA at this time I did review both plain films and CT scan I personally do not see any evidence of fracture. I did tell the patient we will call her once we have the official reads if there is a concern such as a fracture. I told the patient to maintain her current splint which would be adequate immobilization for a scaphoid injury. Patient left without written discharge instructions but I did have a verbal discussion with them Decision to Disposition Date: Feb 07, 2019 Decision to Disposition Time: 17:53 Depart Departure Latest Vital Signs Vital Signs Date Time Temp Pulse Resp B/P (MAP) Pulse Ox O2 Delivery O2 Flow Rate FiO2 02/07/19 16:52 97.6 100 18 113/74 94 Room Air Impression: Primary Impression: Wrist pain Condition: Condition Unchanged [facility]: ANDERS BOB APRN (PCP) Problem Qualifiers Primary Impression: Wrist pain Laterality: left Qualified Codes: M25.532 - Pain in left wrist SHABNAM SCHOFIELD MD Feb 07, 2019 16:51
[2019-02-07 16:52] VITALS: BP 113/74
--- NOTE | 2019-02-07 18:05 | RADIOLOGY IMAGING REPORT ---
FACILITY: [facility] - [place] PATIENT NAME: Phuong Estes : 1975 MR: [id number] V: [id number] EXAM DATE: ORDERING PHYSICIAN: SHABNAM SCHOFIELD TECHNOLOGIST: Location: [facility] - [place] Patient: Phuong Estes : 1975 Visit/Account:[id number] Date of Sevice: 02/07/2019 CT WRIST/HAND W/O LT INDICATION: Fall on left wrist 2 weeks ago. Continued pain and limited range of motion. COMPARISON: None available FINDINGS: Multiple axial images of the left wrist/hand were obtained in 2 mm increments without int ravenous contrast. Sagittal and coronal reconstructions were obtained. One of the following dose opt imization techniques was utilized in the performance of this exam: automated exposure control; adjust ment of the mA and/or kV according to the patient's size; or use of an iterative reconstruction techn ique. Specific details can be referenced in the facility's radiology CT exam operational policy.. No fracture or dislocation. Scapholunate ligament appears to be intact without widening. There is a b one island seen in the capitate. No other bony lesions. No periosteal abnormality. The soft tissues s how normal fat and muscle planes. No masses or fluid collections. No appreciable edema. The tendons a ppear to be intact and unremarkable. The carpal tunnels unremarkable. The vasculature is unremarkable . IMPRESSION: No acute abnormality. Report Dictated By: Isrrael Pacheco at 02/07/2019 5:51 PM Report E-Signed By: Isrrael Pacheoc at 02/07/2019 5:58 PM WSN:[id number]
--- NOTE | 2019-02-07 18:10 | RADIOLOGY IMAGING REPORT ---
FACILITY: [facility] PATIENT NAME: Phuong Estes : 1975 MR: [id number] V: [id number] EXAM DATE: ORDERING PHYSICIAN: SHABNAM SCHOFIELD TECHNOLOGIST: [place] [facility] [place]uong [place] : 1975 Visit/Account:[id number] Date of Sevice: 02/07/2019 HAND COMPLETE LEFT Indication: Fell on left wrist 2 weeks ago with continued pain and limited range of motion. Comparison: 01/01/2008. Findings: 3 views of the left hand. No fracture or dislocation. Small bone island seen in the capitate and the proximal first phalanx of the thumb. No aggressive bony lesions. No appreciable degenerative changes or periosteal abnormality. Soft tissues are unremarkable. IMPRESSION: 1.No acute osseous abnormality of the left hand Report Dictated By: Isrrael Pacheco at 02/07/2019 5:58 PM Report E-Signed By: Isrrael Pacheco at 02/07/2019 6:01 PM WSN:[id number]
== END 2019-02-07 17:59 | disposition left against medical advice (07) ==
LOC: ER 16:55
DX: M25.532 Pain in left wrist (principal)
CPT/HCPCS: 99284